=== PATIENT | male | born 1960 | race Native Hawaiian/Other Pacific Islander ===

== ENCOUNTER 2022-01-15 17:10 | Emergency (ER) | payer OTHER ==
[~2022-01-15] VITALS: Ht 165.1 cm; Wt 97.5 kg
[2022-01-15 17:16] VITALS: BP 142/84; TEMP 97.3
== END 2022-01-15 18:45 | disposition home or self-care (01) ==
LOC: ED 17:10
DX: S93.492A Sprain of other ligament of left ankle, initial encounter (principal); X58.XXXA Exposure to other specified factors, initial encounter; Y92.89 Other specified places as the place of occurrence of the external cause
CPT/HCPCS: 96372; 99283; J1885